=== PATIENT | female | born 1995 | race Caucasian/White ===

== ENCOUNTER 2023-01-19 17:57 | Emergency (ER) | payer MEDICAID ==
[~2023-01-19] VITALS: Ht 162.6 cm; Wt 136.0 kg
[2023-01-19] MEDS ORDERED: KETOROLAC 15 MG/ML VIAL IVP ONE (18:45)
[2023-01-19] MEDS ORDERED: NS IV 1000 ML 1,000 ML IV SCH (18:45)
[2023-01-19] MEDS ORDERED: PROCHLORPERAZINE 10 MG/2ML INJ (COMPAZINE) IV ONE (18:45)
[2023-01-19] MEDS ORDERED: diphenhydrAMINE 50 MG/ML INJ (BENADRYL) IVP ONE (18:45)
--- NOTE | 2023-01-19 18:49 | ED Headache ---
General Chief Complaint: Head/Cervical Problems Stated Complaint: MIGRAINE Nursing Triage Note: PT AMB TO ED BY POV WITH C/O MALDONADO X 2 DAYS. MALDONADO/NECK PAIN BEGINNING TWO DAYS AGO WITH LIGHT AND SOUND SENSITIVITY. PT NOW REPORTS N/V RELATED TO PAIN BEGINNING LAST NIGHT. Source: patient Exam Limitations: no limitations History of Present Illness Date Seen by Provider: Jan 19, 2023 Time Seen by Provider: 18:36 Initial Comments 27 yo F presents for severe MALDONADO that she describes as the worst of her life. She has had mild MALDONADO that have always been relieved by tylenol or motrin but neither has worked. Symptoms x3-4 days now and she had a couple episodes of vomiting secondary to pain last night. No fever but has had chills. Denies , currently on menstrual cycle. No changes in vision. Does have sensitivity to light and sound. No UE/LE weakness, numbness/tingling. other systems reviewed and negative except per HPI. Allergies and Home Medications Allergies Coded Allergies: No Known Drug Allergies (Unverified , 01/19/23) Patient Home Medication List Home Medication List Reviewed: Yes Review of Systems Review of Systems Constitutional: see HPI Past Cujpors-Audhrt-Ciefrx Hx Patient Social History Tobacco Use?: No Use of E-Cig and/or Vaping dev: No Substance use?: No Alcohol Use?: No Physical Exam Vital Signs Vital Signs - First Documented 01/19/23 18:25 Temp 36.8 Pulse 85 Resp 18 B/P (MAP) 141/71 (94) Pulse Ox 98 O2 Delivery Room Air Capillary Refill : Less Than 3 Seconds Height, Weight, BMI Height: '" Weight: lbs. oz. kg; 51.00 BMI Method: General Appearance: WD/WN, no apparent distress HEENT: PERRL/EOMI, normal ENT inspection, TMs normal, pharynx normal Neck: non-tender, full range of motion, supple, normal inspection, other (no meningismus) Cardiovascular: regular rate, rhythm, no murmur Respiratory: chest non-tender, lungs clear, normal breath sounds, no respiratory distress, no accessory muscle use Gastrointestinal: normal bowel sounds, non tender, soft, no organomegaly Extremities: normal range of motion, non-tender, normal inspection, no pedal edema, no calf tenderness, normal capillary refill Psychiatric: alert, oriented x 3 Crainal Nerves: normal hearing, normal speech, PERRL Motor/Sensory: no motor deficit, no sensory deficit, no pronator drift Skin: normal color, warm/dry Progress/Results/Core Measures Results/Orders Lab Results Laboratory Tests Test 01/19/23 19:20 Range/Units White Blood Count 10.9 4.3-11.0 10^3/uL Red Blood Count 4.18 3.80-5.11 10^6/uL Hemoglobin 10.3 L 11.5-16.0 g/dL Hematocrit 32 L 35-52 % Mean Corpuscular Volume 78 L 80-99 fL Mean Corpuscular Hemoglobin 25 25-34 pg Mean Corpuscular Hemoglobin Concent 32 32-36 g/dL Red Cell Distribution Width 15.5 H 10.0-14.5 % Platelet Count 389 130-400 10^3/uL Mean Platelet Volume 9.8 9.0-12.2 fL Immature Granulocyte % (Auto) 0 % Neutrophils (%) (Auto) 72 42-75 % Lymphocytes (%) (Auto) 19 12-44 % Monocytes (%) (Auto) 5 0-12 % Eosinophils (%) (Auto) 3 0-10 % Basophils (%) (Auto) 1 0-10 % Neutrophils # (Auto) 7.8 1.8-7.8 10^3/uL Lymphocytes # (Auto) 2.1 1.0-4.0 10^3/uL Monocytes # (Auto) 0.6 0.0-1.0 10^3/uL Eosinophils # (Auto) 0.4 H 0.0-0.3 10^3/uL Basophils # (Auto) 0.1 0.0-0.1 10^3/uL Immature Granulocyte # (Auto) 0.0 0.0-0.1 10^3/uL Sodium Level 139 135-145 MMOL/L Potassium Level 3.5 L 3.6-5.0 MMOL/L Chloride Level 105 98-107 MMOL/L Carbon Dioxide Level 22 21-32 MMOL/L Anion Gap 12 5-14 MMOL/L Blood Urea Nitrogen 13 7-18 MG/DL Creatinine 0.82 0.60-1.30 MG/DL Estimat Glomerular Filtration Rate 102 BUN/Creatinine Ratio 16 Glucose Level 122 H 70-105 MG/DL Calcium Level 9.0 8.5-10.1 MG/DL Serum Test, Qualitative NEGATIVE NEGATIVE My Orders Orders - MAVISMICHAEL DO Basic Metabolic Panel (01/19/23 18:39) Hcg,Qualitative Serum (01/19/23 18:39) Cbc With Automated Diff (01/19/23 18:39) Iv/Invasive Line Insertion .IV INSERT (01/19/23 18:39) Ct Head Wo (01/19/23 18:39) Ns Iv 1000 Ml (Sodium Chloride 0.9%) (01/19/23 18:45) Ketorolac Injection (Toradol Injection) (01/19/23 18:45) Prochlorperazine Injection (Compazine In (01/19/23 18:45) Diphenhydramine Injection (Benadryl Inje (01/19/23 18:45) Medications Given in ED Current Medications Medications Dose Ordered Sig/Tyler Route Start Time Stop Time Status Last Admin Dose Admin Diphenhydramine HCl 50 mg ONCE ONCE IVP 01/19/23 18:45 01/19/23 18:46 DC 01/19/23 19:25 50 MG Ketorolac Tromethamine 15 mg ONCE ONCE IVP 01/19/23 18:45 01/19/23 18:46 DC 01/19/23 19:32 15 MG Prochlorperazine Edisylate 10 mg ONCE ONCE IV 01/19/23 18:45 01/19/23 18:46 DC 01/19/23 19:26 10 MG Vital Signs/I&O 01/19/23 01/19/23 18:25 20:13 Temp 36.8 36.8 Pulse 85 74 Resp 18 16 B/P (MAP) 141/71 (94) 125/70 Pulse Ox 98 99 O2 Delivery Room Air Room Air 01/20/23 00:00 Intake Total 1000 ml Balance 1000 ml Blood Pressure Mean: 94 Departure Communication (Admissions) CT head obtained as the patient states this is the worst headache of her life. Have independently reviewed the images and radiology's read them and there is no acute intracranial abnormality. Labs are unremarkable and the remainder of her exam is benign. She is afebrile, no meningismus, no indication for lumbar puncture then no evidence for meningitis at this time. Headache is improved with provided medications, IV Toradol Compazine and Benadryl, IV fluids. She is discharged home in stable condition with supportive care and close follow-up. Impression Primary Impression: Migraine Qualified Codes: G43.009 - Migraine without aura, not intractable, without status migrainosus Disposition: HOME, SELF-CARE Condition: Stable Departure-Patient Inst. Referrals: NO,LOCAL PHYSICIAN (PCP/Family) Primary Care Physician Patient Instructions: Migraines (DC) Add. Discharge Instructions: Use benadryl, ibuprophen, and tylenol at home as needed for headache. Follow up with your primary doctor should you have recurrent migraines to talk about possible other medication treatment options. Return to the ER for severe concerns. All discharge instructions reviewed with patient and/or family. Voiced understanding. MICHAEL GAMBLE DO Jan 19, 2023 18:49
[2023-01-19 19:30] LABS: BASOPHILS # (AUTO) 0.1 10^3/uL (0.0-0.1); BASOPHILS % (AUTO) 1 % (0-10); EOSINOPHILS # (AUTO) 0.4 10^3/uL (0.0-0.3); EOSINOPHILS % (AUTO) 3 % (0-10); HEMATOCRIT 32 % (35-52); HEMOGLOBIN 10.3 g/dL (11.5-16.0); LYMPHOCYTES # (AUTO) 2.1 10^3/uL (1.0-4.0); LYMPHOCYTES % (AUTO) 19 % (12-44); MEAN CORPUSCULAR HEMOGLOBIN 25 pg (25-34); MEAN CORPUSCULAR HGB CONC 32 g/dL (32-36); MEAN CORPUSCULAR VOLUME 78 fL (80-99); MEAN PLATELET VOLUME 9.8 fL (9.0-12.2); MONOCYTES # (AUTO) 0.6 10^3/uL (0.0-1.0); MONOCYTES % (AUTO) 5 % (0-12); NEUTROPHILS # (AUTO) 7.8 10^3/uL (1.8-7.8); NEUTROPHILS % (AUTO) 72 % (42-75); PLATELET COUNT 389 10^3/uL (130-400); WHITE BLOOD COUNT 10.9 10^3/uL (4.3-11.0)
[2023-01-19 19:52] LABS: CREATININE SERUM 0.82 MG/DL (0.60-1.30); POTASSIUM 3.5 MMOL/L (3.6-5.0)
--- NOTE | 2023-01-19 20:11 | Diagnostic Imaging Report ---
PROCEDURE: CT head without contrast. TECHNIQUE: Multiple contiguous axial images were obtained through the brain without the use of intravenous contrast. Auto Exposure Controls were utilized during the CT exam to meet ALARA standards for radiation dose reduction. DATE: January 19, 2023. COMPARISON: None. INDICATION: 27-year-old female, headache. Nausea and vomiting. FINDINGS: The ventricles and cerebral spinal fluid spaces are of normal size and configuration for the patient's age. There is no mass effect or midline shift. There is no acute intracranial hemorrhage. There is no abnormal extra-axial fluid collection. The visualized portions of the paranasal sinuses, mastoid air cells and middle ears are well aerated. IMPRESSION: 1. No identified acute intracranial abnormality. Dictated by: Dictated on workstation # [id number]
[2023-01-19 20:13] VITALS: BP 125/70
== END 2023-01-19 20:13 | disposition home or self-care (01) ==
LOC: ER 18:01
DX: G43.909 Migraine, unspecified, not intractable, without status migrainosus (principal)
CPT/HCPCS: 36415; 70450; 80048; 84703; 85025

== ENCOUNTER 2023-02-16 15:47 | Emergency (ER) | payer MEDICAID ==
[~2023-02-16] VITALS: Ht 165.1 cm; Wt 136.0 kg
--- NOTE | 2023-02-16 16:04 | ED GU-Female ---
General Chief Complaint: - Reproductive Stated Complaint: VAGINAL BLEEDING Source: patient Exam Limitations: no limitations History of Present Illness Date Seen by Provider: Feb 16, 2023 Time Seen by Provider: 16:02 Initial Comments Patient is a 27-year-old female who presents ED for vaginal bleeding for the past 3 months. She reports bright red blood as well as blood clots near every day. She does have a history of PCOS which she does not currently take m edication for. Recently moved to the area 2 months ago. She also reports lightheadedness and dizziness. Lower abdominal cramping with the vaginal bleeding. Denies history of this long of bleeding. She states she is going through a 4-month supply of pads in 1 month. She denies history of diabetes, hypertension. Not concern for . She reports frequent urination but de nies fever, chills, bodies, chest pain, shortness of breath. She has had some intermittent headaches with a history of migraines. She denies taking medication for her abdominal cramping. She has not followed up with her primary care physician for her symptoms. She denies nausea, vomiting, diarrhea. Allergies and Home Medications Allergies Coded Allergies: No Known Drug Allergies (Unverified , 01/19/23) Patient Home Medication List Home Medication List Reviewed: Yes Medroxyprogesterone Acetate (Medroxyprogesterone Acetate) 10 Mg Tablet, 10 MG PO DAILY Prescribed by: LYNN HARDING on 02/16/23 4417 Review of Systems Review of Systems Constitutional: No chills, No diaphoresis, No fever, No malaise, No weakness EENTM: No ear discharge, No blurred vision, No double vision, No mouth pain, No throat pain, No throat swelling Respiratory: No cough, No dyspnea on exertion Cardiovascular: No chest pain Gastrointestinal: abdominal pain; No diarrhea, No nausea, No vomiting Genitourinary: denies burning, denies discharge, denies dysuria; frequency Musculoskeletal: No back pain, No joint pain Skin: No change in color, No change in hair/nails All Other Systemes Reviewed Negative Unless Noted: Yes Past Ofgclci-Byowut-Itmjof Hx Patient Social History Tobacco Use?: No Substance use?: No Alcohol Use?: No Past Medical History Surgery/Hospitalization HX: GLAUCOMA Physical Exam Vital Signs Vital Signs - First Documented 02/16/23 15:53 Temp 36.5 Pulse 103 B/P (MAP) 170/110 (130) Pulse Ox 98 O2 Delivery Room Air Capillary Refill : Height, Weight, BMI Height: '" Weight: lbs. oz. kg; 51.00 BMI Method: General Appearance: WD/WN, no apparent distress HEENT: PERRL/EOMI, normal ENT inspection, TMs normal, pharynx normal Neck: non-tender, full range of motion, supple, normal inspection Cardiovascular: regular rate, rhythm, no edema, no gallop, no JVD Respiratory: chest non-tender, lungs clear, normal breath sounds, no respiratory distress, no accessory muscle use Gastrointestinal: normal bowel sounds, soft, no organomegaly, tenderness (Suprapubic tenderness.) Pelvic: normal external exam, normal adnexa, no cerv. motion tender Back: normal inspection, no CVA tenderness Extremities: normal range of motion, non-tender, normal inspection, no pedal edema Neurologic/Psychiatric: weighmaster II-XII nml as tested, no motor/sensory deficits, alert, normal mood/affect, oriented x 3 Skin: normal color, warm/dry Progress/Results/Core Measures Suspected Sepsis SIRS Temperature: Pulse: Respiratory Rate: Laboratory Tests 02/16/23 17:10: White Blood Count 10.0 Blood Pressure / Mean: Laboratory Tests 02/16/23 17:10: Creatinine 0.76, Platelet Count 490H, Total Bilirubin 0.3 Results/Orders Lab Results Laboratory Tests Test 02/16/23 16:20 02/16/23 17:10 Range/Units Urine Color YELLOW Urine Clarity CLOUDY Urine pH 5.5 5-9 Urine Specific [place] >=1.030 1.016-1.022 Urine Protein 1+ H NEGATIVE Urine Glucose (UA) NEGATIVE NEGATIVE Urine Ketones NEGATIVE NEGATIVE Urine Nitrite NEGATIVE NEGATIVE Urine Bilirubin NEGATIVE NEGATIVE Urine Urobilinogen 0.2 < = 1.0 MG/DL Urine Leukocyte Esterase NEGATIVE NEGATIVE Urine RBC (Auto) 3+ H NEGATIVE Urine RBC >100 H /HPF Urine WBC RARE /HPF Urine Squamous Epithelial Cells 0-2 /HPF Urine Crystals NONE /LPF Urine Bacteria TRACE /HPF Urine Casts NONE /LPF Urine Mucus NEGATIVE /LPF Urine Culture Indicated NO Urine Test NEGATIVE NEGATIVE White Blood Count 10.0 4.3-11.0 10^3/uL Red Blood Count 4.27 3.80-5.11 10^6/uL Hemoglobin 10.7 L 11.5-16.0 g/dL Hematocrit 33 L 35-52 % Mean Corpuscular Volume 78 L 80-99 fL Mean Corpuscular Hemoglobin 25 25-34 pg Mean Corpuscular Hemoglobin Concent 32 32-36 g/dL Red Cell Distribution Width 15.2 H 10.0-14.5 % Platelet Count 490 H 130-400 10^3/uL Mean Platelet Volume 9.6 9.0-12.2 fL Immature Granulocyte % (Auto) 0 % Neutrophils (%) (Auto) 65 42-75 % Lymphocytes (%) (Auto) 26 12-44 % Monocytes (%) (Auto) 5 0-12 % Eosinophils (%) (Auto) 4 0-10 % Basophils (%) (Auto) 1 0-10 % Neutrophils # (Auto) 6.5 1.8-7.8 10^3/uL Lymphocytes # (Auto) 2.6 1.0-4.0 10^3/uL Monocytes # (Auto) 0.5 0.0-1.0 10^3/uL Eosinophils # (Auto) 0.4 H 0.0-0.3 10^3/uL Basophils # (Auto) 0.1 0.0-0.1 10^3/uL Immature Granulocyte # (Auto) 0.0 0.0-0.1 10^3/uL Sodium Level 140 135-145 MMOL/L Potassium Level 3.8 3.6-5.0 MMOL/L Chloride Level 106 98-107 MMOL/L Carbon Dioxide Level 22 21-32 MMOL/L Anion Gap 12 5-14 MMOL/L Blood Urea Nitrogen 12 7-18 MG/DL Creatinine 0.76 0.60-1.30 MG/DL Estimat Glomerular Filtration Rate 111 BUN/Creatinine Ratio 16 Glucose Level 134 H 70-105 MG/DL Calcium Level 9.3 8.5-10.1 MG/DL Corrected Calcium 9.1 8.5-10.1 MG/DL Total Bilirubin 0.3 0.1-1.0 MG/DL Aspartate Amino Transf (AST/SGOT) 20 5-34 U/L Alanine Aminotransferase (ALT/SGPT) 27 0-55 U/L Alkaline Phosphatase 52 40-136 U/L Total Protein 7.9 6.4-8.2 GM/DL Albumin 4.3 3.2-4.5 GM/DL Micro Results Microbiology 02/16/23 Wet Prep - Final, Complete My Orders Orders - SHELLEY HANNA Ua Culture If Indicated (02/16/23 15:52) Hcg,Qualitative Urine (02/16/23 15:52) Cbc With Automated Diff (02/16/23 16:00) Comprehensive Metabolic Panel (02/16/23 16:00) Wet Prep (02/16/23 16:00) Chlamydia Trachomatis Swab (02/16/23 16:00) Neisseria Gonorrhea Swab (02/16/23 16:00) Ct Abdomen/Pelvis Wo (02/16/23 17:30) Vital Signs/I&O 02/16/23 02/16/23 15:53 18:27 Temp 36.5 Pulse 103 B/P (MAP) 170/110 (130) 135/106 Pulse Ox 98 O2 Delivery Room Air Capillary Refill : Departure Communication (PCP) Patient is a 27-year-old female who presents ED with vaginal bleeding for the past 3 months. History of PCOS. Recently moved to the area. She reports passing of bright red blood and blood clots. Denies of any vaginal discharge. Frequent urination. Refused pelvic exam but agreed to self swabs. Wet mount was unremarkable. Chlamydia and gonorrhea pending. Not necessarily concern for STD but would be a source of concern such as PID. Urinalysis CBC, CMP was ordered. Do not have ultrasound on the weekends. Urinalysis positive for hematuria without evidence of . No evidence infection. She had suprapubic tenderness on palpation. No flank pain, fever, chills, body aches. CT abdomen and pelvis was negative for uterine mass, nephrolithiasis, urolithiasis. CBC showed stable hemoglobin 10.7 with a hematocrit 33. Suspect hyperplasia, PCOS. Patient was slightly hypertensive. No evidence of endorgan damage. No chest pain or shortness of breath. No focal neural deficits. Recommend continue monitoring blood pressure. Recommend outpatient ultrasound. Will discharge with medroxyprogesterone 10 mg once a day for 10 days. Recommended gynecology outpatient follow-up. Recommend follow-up your PCP in 2 days for reevaluation. Would benefit with an ultrasound. Continue with your pads. If any worsening symptoms such as weakness, dizziness, continue heavy vaginal bleeding to return back to ED. Recommend further pelvic exam. Impression Primary Impression: Vaginal bleeding Disposition: HOME, SELF-CARE Condition: Stable Departure-Patient Inst. Decision time for Depature: 17:27 Referrals: NO,LOCAL PHYSICIAN (PCP) Primary Care Physician JAY JAMISON DO Patient Instructions: Absent or irregular periods Add. Discharge Instructions: Need to follow-up with gynecology for further evaluation. Take medication as prescribed. If any worsening symptoms such as weakness fatigue to return back to ED. they consider following up with primary care physician in the next 2 or 3 days for reevaluation and further outpatient ultrasound of the pelvic All discharge instructions reviewed with patient and/or family. Voiced understanding. Scripts Medroxyprogesterone Acetate (Medroxyprogesterone Acetate) 10 Mg Tablet 10 MG PO DAILY for 10 Days, #10 TAB Prov: SHELLEY HANNA 02/16/23 SHELLEY HANNA Feb 16, 2023 16:04
[2023-02-16 16:39] LABS: BILIRUBIN,URINE NEGATIVE (NEGATIVE); CLARITY,URINE CLOUDY; COLOR,URINE YELLOW; GLUCOSE, URINE (UA) NEGATIVE (NEGATIVE); KETONES,URINE NEGATIVE (NEGATIVE); LEUKOCYTE ESTERASE ,URINE NEGATIVE (NEGATIVE); NITRITE,URINE NEGATIVE (NEGATIVE); PH,URINE 5.5 (5-9); PROTEIN,URINE 1+ (NEGATIVE)
[2023-02-16 16:49] LABS: BACTERIA,URINE TRACE /HPF; RBC,URINE >100 /HPF; SQUAMOUS EPITHELIAL CELL,UR 0-2 /HPF; WBC,URINE RARE /HPF
[2023-02-16 17:18] LABS: BASOPHILS # (AUTO) 0.1 10^3/uL (0.0-0.1); BASOPHILS % (AUTO) 1 % (0-10); EOSINOPHILS # (AUTO) 0.4 10^3/uL (0.0-0.3); EOSINOPHILS % (AUTO) 4 % (0-10); HEMATOCRIT 33 % (35-52); HEMOGLOBIN 10.7 g/dL (11.5-16.0); LYMPHOCYTES # (AUTO) 2.6 10^3/uL (1.0-4.0); LYMPHOCYTES % (AUTO) 26 % (12-44); MEAN CORPUSCULAR HEMOGLOBIN 25 pg (25-34); MEAN CORPUSCULAR HGB CONC 32 g/dL (32-36); MEAN CORPUSCULAR VOLUME 78 fL (80-99); MEAN PLATELET VOLUME 9.6 fL (9.0-12.2); MONOCYTES # (AUTO) 0.5 10^3/uL (0.0-1.0); MONOCYTES % (AUTO) 5 % (0-12); NEUTROPHILS # (AUTO) 6.5 10^3/uL (1.8-7.8); NEUTROPHILS % (AUTO) 65 % (42-75); PLATELET COUNT 490 10^3/uL (130-400)
[2023-02-16 17:29] LABS: ALBUMIN 4.3 GM/DL (3.2-4.5)
[2023-02-16] MEDS ORDERED: MEDR10TA9 PO (17:29)
[2023-02-16 17:30] LABS: POTASSIUM 3.8 MMOL/L (3.6-5.0)
[2023-02-16 17:31] LABS: CALCIUM 9.3 MG/DL (8.5-10.1)
[2023-02-16 17:32] LABS: TOTAL PROTEIN 7.9 GM/DL (6.4-8.2)
[2023-02-16 17:34] LABS: BILIRUBIN,TOTAL 0.3 MG/DL (0.1-1.0)
[2023-02-16 17:36] LABS: CREATININE SERUM 0.76 MG/DL (0.60-1.30)
--- NOTE | 2023-02-16 18:08 | Diagnostic Imaging Report ---
Procedure: CT abdomen and pelvis without contrast. Technique: Multiple contiguous axial images were obtained through the abdomen and pelvis without the use of intravenous contrast. Auto Exposure Controls were utilized during the CT exam to meet ALARA standards for radiation dose reduction. Date: February 16, 2023. Indication: 27-year-old female, abdominal pain and bleeding. Comparison: None. Findings: The lung bases are grossly clear. The heart is not enlarged. There is no pericardial effusion. The liver is unremarkable in size and contour. There is differential fat content near the level of the gallbladder fossa in the liver. The gallbladder is contracted. There is no intrahepatic or extrahepatic bile duct dilation. Noncontrast pancreatic parenchymal assessment is unremarkable. The spleen is normal in size. The adrenal glands are unremarkable. Noncontrast assessment of the renal parenchyma is unremarkable. The urinary collecting systems are not distended. There is no identified renal or ureteral stone. The urinary bladder is unremarkable. The intestinal tract is not distended. There is no evidence to suggest acute appendicitis. There is no free intraperitoneal air. There is no drainable fluid collection. There is no sizable volume free fluid in the abdomen or pelvis. There is no identified abnormally enlarged lymph node in the abdomen or pelvis which specifically meets CT size criteria for adenopathy. There is no identified acute bony abnormality. Impression: No identified acute abnormality in the abdomen or pelvis. Dictated by: Dictated on workstation # [id number]
[2023-02-16 18:27] VITALS: BP 135/106
== END 2023-02-16 18:27 | disposition home or self-care (01) ==
LOC: EDUNIT# 15:47 → ER 15:49
DX: N93.9 Abnormal uterine and vaginal bleeding, unspecified (principal)
CPT/HCPCS: 36415; 74176; 80053; 81000; 84703; 85025; 87210; 87491; 87591

== ENCOUNTER 2023-03-10 06:26 | Emergency (ER) | payer OTHER, MEDICAID ==
[~2023-03-10] VITALS: Ht 165 cm; Wt 136.0 kg
[~2023-03-10 06:26] MED LIST: MEDR10TA9 PO
--- NOTE | 2023-03-10 06:44 | ED GU-Female ---
General Chief Complaint: - Reproductive Stated Complaint: VAGINAL BLEEDING FOR 3 MONTHS Source: patient Exam Limitations: no limitations History of Present Illness Date Seen by Provider: Mar 10, 2023 Time Seen by Provider: 06:34 Initial Comments 27-year-old female with PCOS presents for heavy vaginal bleeding. She states symptoms have been going on currently for the last 3 to 4 months but she has had issues with this lifelong since she started to have menstrual cycles. She was seen here on February [address] scan of her abdomen pelvis, urinalysis, blood work showing a hemoglobin of 10.7 and had self swabs for gonorrhea, chlamydia and a wet prep all of which were negative. She scheduled an OB follow-up but states her appointment is not until April. No new sexual partners. Denies . No dizziness or lightheadedness. She states she has bleeding through depends with frequent clots. All other systems reviewed and negative except documented per HPI. Voice recognition software was used to help create this chart Allergies and Home Medications Allergies Coded Allergies: No Known Drug Allergies (Unverified , 01/19/23) Patient Home Medication List Home Medication List Reviewed: Yes Discontinued Medications Medroxyprogesterone Acetate (Medroxyprogesterone Acetate) 10 Mg Tablet, 10 MG PO DAILY Discontinued Reason: No Longer Taking Prescribed by: LYNN HARDING on 02/16/231728 Last Action: Discontinued Review of Systems Review of Systems Constitutional: see HPI Past Qchcpvt-Ynirxh-Vvlowo Hx Patient Social History Tobacco Use?: No Use of E-Cig and/or Vaping dev: No Substance use?: No Alcohol Use?: No Past Medical History Surgery/Hospitalization HX: GLAUCOMA Physical Exam Vital Signs Vital Signs - First Documented 03/10/23 06:32 Temp 36.0 Pulse 86 Resp 18 B/P (MAP) 122/109 (113) Pulse Ox 100 O2 Delivery Room Air Capillary Refill : Height, Weight, BMI Height: '" Weight: lbs. oz. kg; 49.00 BMI Method: General Appearance: WD/WN, no apparent distress HEENT: normal ENT inspection, pharynx normal Neck: non-tender, supple Cardiovascular: regular rate, rhythm, no murmur Respiratory: chest non-tender, lungs clear, normal breath sounds, no respiratory distress, no accessory muscle use Gastrointestinal: normal bowel sounds, non tender, soft, no organomegaly Extremities: non-tender, normal inspection, normal capillary refill Neurologic/Psychiatric: alert, oriented x 3 Skin: normal color, warm/dry Progress/Results/Core Measures Suspected Sepsis SIRS Temperature: Pulse: Respiratory Rate: Laboratory Tests 03/10/23 06:45: White Blood Count 9.0 Blood Pressure / Mean: Laboratory Tests 03/10/23 06:45: Platelet Count 387 Results/Orders Lab Results Laboratory Tests Test 03/10/23 06:45 Range/Units White Blood Count 9.0 4.3-11.0 10^3/uL Red Blood Count 3.77 L 3.80-5.11 10^6/uL Hemoglobin 9.5 L 11.5-16.0 g/dL Hematocrit 30 L 35-52 % Mean Corpuscular Volume 79 L 80-99 fL Mean Corpuscular Hemoglobin 25 25-34 pg Mean Corpuscular Hemoglobin Concent 32 32-36 g/dL Red Cell Distribution Width 14.6 H 10.0-14.5 % Platelet Count 387 130-400 10^3/uL Mean Platelet Volume 9.4 9.0-12.2 fL Immature Granulocyte % (Auto) 1 % Neutrophils (%) (Auto) 61 42-75 % Lymphocytes (%) (Auto) 29 12-44 % Monocytes (%) (Auto) 5 0-12 % Eosinophils (%) (Auto) 4 0-10 % Basophils (%) (Auto) 1 0-10 % Neutrophils # (Auto) 5.5 1.8-7.8 10^3/uL Lymphocytes # (Auto) 2.6 1.0-4.0 10^3/uL Monocytes # (Auto) 0.4 0.0-1.0 10^3/uL Eosinophils # (Auto) 0.3 0.0-0.3 10^3/uL Basophils # (Auto) 0.1 0.0-0.1 10^3/uL Immature Granulocyte # (Auto) 0.1 0.0-0.1 10^3/uL My Orders Orders - MICHAEL GAMBLE DO Cbc With Automated Diff (03/10/23 06:40) Hcg,Qualitative Serum (03/10/23 06:40) Vital Signs/I&O 03/10/23 06:32 Temp 36.0 Pulse 86 Resp 18 B/P (MAP) 122/109 (113) Pulse Ox 100 O2 Delivery Room Air Capillary Refill : Departure Communication (Admissions) 0673: SPOke to Dr Jaeger, she recommends DC medroxyprogesterone and start norethindrone, 5 mg twice daily. She requested patient call their office to see if they can get her in in the next couple of weeks. Her hemoglobin is stable at 9.3 but she has dropped a gram of hemoglobin since February 16. She is given strict return precautions for shortness of breath, dizziness and discharged in stable condition. Impression Primary Impression: Vaginal bleeding Disposition: HOME, SELF-CARE Condition: Stable Departure-Patient Inst. Referrals: NO,LOCAL PHYSICIAN (PCP/Family) Primary Care Physician Add. Discharge Instructions: I spoke with Dr. Jaeger, she recommends you call her office where she believes she will be able to get in in the next couple of weeks with one of their providers. She also recommends that you stop taking the medroxyprogesterone and start norethindrone, 5 mg twice a day. I have given you a month supply. Return to the emergency department for any severe dizziness, lightheadedness or shortness of breath. All discharge instructions reviewed with patient and/or family. Voiced understanding. Scripts Norethindrone (Norethindrone Acetate) 5 Mg Tab 5 MG PO BID for 30 Days, #60 TAB Prov: MICHAEL GAMBLE DO 03/10/23 MICHAEL GAMBLE DO Mar 10, 2023 06:44
[2023-03-10 06:52] LABS: BASOPHILS # (AUTO) 0.1 10^3/uL (0.0-0.1); BASOPHILS % (AUTO) 1 % (0-10); EOSINOPHILS # (AUTO) 0.3 10^3/uL (0.0-0.3); EOSINOPHILS % (AUTO) 4 % (0-10); HEMATOCRIT 30 % (35-52); HEMOGLOBIN 9.5 g/dL (11.5-16.0); LYMPHOCYTES # (AUTO) 2.6 10^3/uL (1.0-4.0); LYMPHOCYTES % (AUTO) 29 % (12-44); MEAN CORPUSCULAR HEMOGLOBIN 25 pg (25-34); MEAN CORPUSCULAR HGB CONC 32 g/dL (32-36); MEAN CORPUSCULAR VOLUME 79 fL (80-99); MEAN PLATELET VOLUME 9.4 fL (9.0-12.2); MONOCYTES # (AUTO) 0.4 10^3/uL (0.0-1.0); MONOCYTES % (AUTO) 5 % (0-12); NEUTROPHILS # (AUTO) 5.5 10^3/uL (1.8-7.8); NEUTROPHILS % (AUTO) 61 % (42-75); PLATELET COUNT 387 10^3/uL (130-400)
[2023-03-10] MEDS ORDERED: NF-NORETH5 PO (06:58)
[2023-03-10 07:07] VITALS: BP 122/109
== END 2023-03-10 07:07 | disposition home or self-care (01) ==
LOC: EDUNIT# 06:26 → ER 06:29
DX: N93.9 Abnormal uterine and vaginal bleeding, unspecified (principal)
CPT/HCPCS: 36415; 84703; 85025

== ENCOUNTER → 2023-03-25 | Outpatient (CLI) | payer MEDICAID, OTHER ==
[~2023-03-25] MED LIST changes: +NF-NORETH5 PO
--- NOTE | 2023-03-25 13:58 | Diagnostic Imaging Report ---
PROCEDURE: Pelvic comp/transvaginal sonogram. TECHNIQUE: Complete transabdominal and transvaginal pelvic ultrasound was performed. In addition, limited pelvic Doppler was performed. INDICATION: Abnormal uterine bleeding for 3 months. Uterus is anteverted measuring 9.4 x 5.0 x 5.0 cm. Endometrium is 3 mm in thickness. There appears to be an echogenic focus of approximately 6 mm x 4 mm in the endometrial canal, likely calcification. No myometrial mass is identified. Right ovary cannot be visualized due to patient large body habitus. Left ovary measures 3.4 x 1.9 x 2.4 cm. Dominant follicle or cyst left ovary measures 2.4 cm. There is blood flow to left ovary. No free fluid is detected. IMPRESSION: 1. 2.4 cm dominant follicle or cyst left ovary. No other significant abnormality is identified. Dictated by: Dictated on workstation # [id number]
== END ==
LOC: RAD 09:32
PROVIDERS: ATTEND Obstetrics & Gynecology
DX: N93.9 Abnormal uterine and vaginal bleeding, unspecified (principal)
CPT/HCPCS: 76830; 76856